=== PATIENT | female | born 1940 | race African-American/Black ===

== ENCOUNTER 2022-04-12 14:58 | Emergency (ER) | payer OTHER ==
[~2022-04-12] VITALS: Ht 165.1 cm; Wt 73.0 kg
[2022-04-12] MEDS ORDERED: CYCLOBENZAPRINE 10MG TABLET PO ONE (16:45)
[2022-04-12] MEDS ORDERED: CYCL5TAB MT (17:56)
[2022-04-12 18:59] VITALS: BP 123/78
== END 2022-04-12 18:37 | disposition home or self-care (01) ==
LOC: ER 14:58
DX: M79.18 Myalgia, other site (principal); V49.59XA Passenger injured in collision with other motor vehicles in traffic accident, initial encounter; Y93.89 Activity, other specified; Y92.89 Other specified places as the place of occurrence of the external cause; Y99.8 Other external cause status; I10 Essential (primary) hypertension; Z90.49 Acquired absence of other specified parts of digestive tract; Z98.890 Other specified postprocedural states; Z88.2 Allergy status to sulfonamides
CPT/HCPCS: 99283